=== PATIENT | female | born 1995 | race Hispanic/Latino ===

== ENCOUNTER 2024-09-09 11:09 | Emergency (ER) | payer SELFPAY ==
[~2024-09-09] VITALS: Ht 157.5 cm; Wt 52.6 kg
[2024-09-09] MEDS: teTANUS/diphthERIA TOXOID [ADULT] 0.5 ML VIAL IM ONE (11:54)
--- NOTE | 2024-09-09 12:32 | ERN ---
ED Note History of Present Illness Stated Complaint: LACERATION Chief Complaint: Laceration/Avulsion Time Seen by MD: 11:56 Dictation: PATIENT IS A 28-YEAR-OLD FEMALE MALE HERE WITH TWO SUPERFICIAL ABRASIONS TO THE BASE OF RIGHT THUMB. SHE STATES ONSET WAS THIS MORNING WHEN HER DAUGHTER KNOCKED OVER A BOTTLE OF TEQUILA AND SHE WENT TO GRAB IT AND IT CUT HER THUMB. TETANUS SHOT WAS UNKNOWN, NEUROVASCULAR CMS INTACT NO BLEEDING. PATIENT AND MADE AWARE THAT NO NEED FOR REPAIR AT THIS TIME. Allergies: Coded Allergies: Penicillins (Unverified Allergy, Unknown, 09/09/24) Past Medical History Past Medical History: No Pertinent History Surgical History: None PSYCH History: no pertinent psych hx History: Not Applicable RN Note Reviewed/Agreed w/PFSH: Yes Review of System Dictation CONSTITUTIONAL: NEGATIVE EXCEPT FOR HPI HEAD/FACE: NEGATIVE EXCEPT FOR HPI EENT: NEGATIVE EXCEPT FOR HPI RESPIRATORY: NEGATIVE EXCEPT FOR HPI GASTROINTESTINAL/ABDOMINAL: NEGATIVE EXCEPT FOR HPI GENITOURINARY: NEGATIVE EXCEPT FOR HPI MUSCULOSKELETAL: NEGATIVE EXCEPT FOR HPI INTEGUMENTARY: NEGATIVE EXCEPT FOR HPI SUPERFICIAL ABRASIONS TO BASE OF RIGHT THUMB NEUROLOGICAL/PSYCH: NEGATIVE EXCEPT FOR HPI HEMATOLOGIC/LYMPHATIC: NEGATIVE EXCEPT FOR HPI ALL SYSTEMS NEGATIVE, EXCEPT NOTED ABOVE. 13 POINT REVIEW OF SYSTEMS ASSESSED AND ALL NEGATIVE EXCEPT FOR ABOVE. Initial Vital Sign VS Vital Signs Date Time Temp Pulse Resp B/P (MAP) Pulse Ox O2 Delivery O2 Flow Rate FiO2 09/09/24 11:13 98.1 69 16 105/81 100 0 09/09/24 11:19 Room Air* 21 Physical Exam Dictation VITAL SIGNS REVIEWED GENERAL APPEARANCE: ALERT, ORIENTED X 3, MILD ACUTE DISTRESS, WELL DEVELOPED, NOURISHED. HEAD AND FACE: NON-TRAUMATIC. EYES: PERRL, PINK CONJUNCTIVAS, EYELID NO TRAUMA, ANTERIOR CHAMBER WITH ARCUS SENILIS. EARS: PINNAS INTACT AND NO SIGNS OF TRAUMA OR ERYTHEMA EAR CANALS CLEAR AND NO DISCHARGE TM NO ERYTHEMA NOSE: NO DISCHARGE, NO BLEEDING. OROPHARYNX: MOUTH NORMAL, TONGUE PINK, PHARYNX CLEAR,NO ERYTHEMA, TONSILS NO EXUDATES, NO ABSCESSES NOTED, MUCOUS MEMBRANE MOIST NECK: SUPPLE, NON-TENDER, NO THYROMEGALY, NO MASSES, NO JVD, NO BRUITS BREAST:DEFERRED CHEST:NO TENDERNESS, NO CREPITUS, NO PARADOXICAL MOVEMENT, NO RETRACTIONS LUNGS:CLEAR, WELL-VENTILATED, SYMMETRIC, NO RALES, NO WHEEZING, NO RHONCHI, NO STRIDOR, GOOD BREATH SOUNDS BILATERALLY HEART: REGULAR RATE, REGULAR RHYTHM, NO MURMUR, NO GALLOPS VASCULAR: NO PERIPHERAL EDEMA, ABDOMEN: SOFT, POSITIVE BOWEL SOUNDS, NONDISTENDED, NO GUARDING, NONTENDER, NO REBOUND, NO MASSES NO HEPATOMEGALY, NO SPLENOMEGALY, NO VALLE'S SIGN, NO HERNIAS. RECTAL: DEFERRED GENITAL: DEFERRED NEUROLOGICAL: NORMAL SPEECH, MOTOR FUNCTION INTACT, SENSORY FUNCTION INTACT MUSCULOSKELETAL: NECK NONTENDER, FULL RANGE OF MOTION, BACK NONTENDER, FULL RANGE OF MOTION, EXTREMITIES: NONTENDER, FULL RANGE OF MOTION FULL RANGE OF MOTION WITH A OPPOSITION TO RIGHT HAND SKIN: COLOR PINK, DRY, TWO SUPERFICIAL ABRASIONS TO BASE OF RIGHT THUMB APPROXIMATE 1 CM EACH NO REPAIR REQUIRED LYMPHATIC: DEFERRED Results (Laboratory/Radiology) Labs Reviewed?: Yes ED Course ED Course Orders Procedure Category Date Status Time Tetanus,Diphtheria PHA 09/09/24 Complete Tox [Adult] (Diphther 12:00 Acetaminophen 500mg PHA 09/09/24 Transmitted Tab (Tylenol 500mg T 12:30 Neomy PHA 09/09/24 Transmitted Sulf/Bacitra/Polymyxin 12:30 Current Medications Medications (Trade) Dose Ordered Sig/Izabella Route PRN Reason Start Time Stop Time Status Last Admin Dose Admin Tetanus/ Diphtheria Toxoids Adsorbed (DiphthERIA-teTANUS TOXOID [ADULT]/ DECAVAC) 0.5 ml ONCE ONCE IM 09/09/24 12:00 09/09/24 12:01 DC 09/09/24 11:54 Vital Signs Date Time Temp Pulse Resp B/P (MAP) Pulse Ox O2 Delivery O2 Flow Rate FiO2 09/09/24 11:43 98.8 78 20 124/58 97 Room Air* 0 21 09/09/24 11:19 98.1 69 16 105/81 100 Room Air* 0 21 09/09/24 11:13 98.1 69 16 105/81 100 0 1230 PATIENT AND MADE AWARE THAT NO NEED FOR REPAIR AT THIS TIME. PATIENT WILL BE GIVEN PAIN MEDICATION TETANUS WAS UPDATED AND WE WILL BE GIVEN T RIPLE ANTIBIOTIC OINTMENT AND SENT HOME TO FOLLOW UP WITH HER DOCTOR IN [place], Medical Decision Making MDM MEDICAL DISCHARGE MAKING IS BASED ON EMPIRIC TREATMENT FOR SUPERFICIAL ABRASIONS TO RIGHT THUMB X2 NO REPAIR REQUIRED TETANUS WAS UPDATED AND PATIENT GIVEN TYLENOL AND DRESSINGS WERE APPLIED TO ABRASIONS DX & DISP Disposition: Discharge Departure Impression: Primary Impression: Abrasion of thumb, right Condition: Stable Additional Instructions: FOLLOW-UP WITH PRIMARY CARE PROVIDER IN 1 TO 2 DAYS. TAKE MEDICATIONS DIRECTED HERE IN THE EMERGENCY ROOM. OKAY TO CONTINUE HOME MEDICATIONS UNLESS OTHERWISE DISCUSSED DURING YOUR VISIT IN THE EMERGENCY ROOM TODAY. RETURN TO YOUR NEAREST EMERGENCY ROOM IF SYMPTOMS WORSEN OR IF THERE IS NO IMPROVEMENT. CALL 911 IF YOU NEED IMMEDIATE ASSISTANCE. TAKE TYLENOL OR MOTRIN OVER-THE- COUNTER NEEDED AND IF NO CONTRAINDICATIONS ARE PRESENT. INCREASE ORAL HYDRATION. A WOUND CULTURE OR URINE CULTURE WAS ORDERED HERE IN THE EMERGENCY ROOM DEPARTMENT PLEASE FOLLOW-UP WITH PRIMARY CARE PROVIDER AND ADVISE THEM TO GET REPEAT PORTS FROM OUR FACILITY. IF YOU HAD ANY PAM WRAP/SPLINTS THAT WERE APPLIED HERE, PLEASE DO NOT REMOVE THEM UNTIL YOU SEE YOUR PRIMARY CARE OR SPECIALTY. TRIPLE ANTIBIOTIC OINTMENT/[id number] TIMES A DAY FOR FIVE DAYS WITH B[facility]. SEE YOUR PRIMARY CARE DOCTOR FOR FOLLOW UP Referrals: REMI DENIS (PCP) Time of Disposition: 12:31 I have reviewed the case, and I agree with, Diagnosis and Plan BERENICE GATES NP Sep 09, 2024 12:32
[2024-09-09] MEDS: NEOMY SULF/BACITRA/POLYMYXIN B 1 EACH PACKET TP ONE (12:41)
[2024-09-09] MEDS: acetaMINOPHEN 500 MG TABLET PO ONE (12:41)
[2024-09-09 12:45] VITALS: BP 127/62; PULSE 71; RESP 18; TEMP 98; O2SAT 97
--- NOTE | 2024-09-09 12:45 | NUR ---
PATIENT WOUND SOAKED WITH BETADINE AND STERILE WATER. PATIENT WOUND THEN CLEANED WITH WOUND CLEANSER AND TRIPLE ANTIBIOTIC CREAM APPLIED PER ORDER.
== END 2024-09-09 12:46 | disposition home or self-care (01) ==
LOC: EEVIPCON 11:09 → EDH 11:09
DX: S60.311A Abrasion of right thumb, initial encounter (principal); Z88.0 Allergy status to penicillin; X58.XXXA Exposure to other specified factors, initial encounter; Y93.89 Activity, other specified; Y92.89 Other specified places as the place of occurrence of the external cause; Y99.8 Other external cause status
CPT/HCPCS: 90471; 90714; 99283